=== PATIENT | female | born 1945 | race Caucasian/White ===

== ENCOUNTER → 2018-01-22 12:20 | Outpatient (CLI) | payer MEDICARE, OTHER ==
[2012-03-16 04:00] VITALS: BMI 26.6
== END | disposition home or self-care (01) ==
LOC: D.CT 12:20
DX: J06.9 Acute upper respiratory infection, unspecified (principal)

== ENCOUNTER → 2018-08-09 10:41 | Outpatient (CLI) | payer MEDICARE, OTHER ==
[2012-03-16 04:00] VITALS: BMI 26.6
[2018-08-09 12:28] LABS: BASOPHILS 0.3 % (0-2); HEMATOCRIT 35.9 % (36.0-48.0); HEMOGLOBIN 11.9 g/dL (12-16); IMMATURE GRANULOCYTES 0.3 % (0-5); LYMPHOCYTES 49.4 % (15-50); MCH 30.7 pg (26.0-34.0); MCHC 33.1 g/dL (31.0-37.0); MCV 92.8 fL (80.0-100.0); MEAN PLATELET VOLUME 9.2 fL (7.4-10.4); PLATELET COUNT 197 10x3/uL (130-400); RBC 3.87 10x6/uL (4.00-5.40); RDW 13.1 % (11.5-14.5); WBC 7.2 10x3/uL (4.8-10.8)
[2018-08-10 08:13] LABS: IMMUNOGLOBULIN A 123 mg/dL (64-422)
[2018-08-12 13:12] LABS: IMMUNOGLOBULIN E 26 IU/mL (0-100)
[2018-08-14 15:15] LABS: IGG SUBCLASS 1 637 mg/dL (248-810); IGG SUBCLASS 2 106 mg/dL (130-555); IGG SUBCLASS 3 58 mg/dL (15-102); IGG SUBCLASS 4 20 mg/dL (2-96)
== END | disposition home or self-care (01) ==
LOC: D.RT 10:41
PROVIDERS: Internal Medicine Pulmonary Disease
DX: J45.909 Unspecified asthma, uncomplicated (principal); J42 Unspecified chronic bronchitis

== ENCOUNTER 2018-09-30 12:14 | Inpatient (IN) | payer MEDICARE, OTHER ==
[~2018-09-30] VITALS: Ht 175.3 cm; Wt 95.0 kg
[2018-09-30] MEDS ORDERED: GLUCOPHAGE500 MG PO (12:28)
[2018-09-30] MEDS ORDERED: EDARBI40 MG PO (12:29)
[2018-09-30] MEDS ORDERED: NORVASC10 MG PO (12:29)
[2018-09-30] MEDS ORDERED: LANTUS INSULIN10 ML SC (12:30)
[2018-09-30] MEDS ORDERED: MAG-OX 400 MG400 MG PO (12:30)
[2018-09-30] MEDS ORDERED: OMEPRAZOLE20 M1 PO (12:43)
[2018-09-30 14:34] LABS: APPEARANCE CLEAR (CLEAR); BILIRUBIN NEGATIVE (NEGATIVE); COLOR YELLOW (YELLOW); GLUCOSE NEGATIVE (NEGATIVE); KETONE NEGATIVE (NEGATIVE); NITRITE NEGATIVE (NEGATIVE); PROTEIN NEGATIVE (NEGATIVE); SPECIFIC GRAVITY 1.015 (1.005-1.020); UROBILINOGEN NORMAL (NORMAL)
[2018-09-30 15:28] LABS: MAGNESIUM - SERUM 1.3 mg/dL (1.8-2.4)
[2018-09-30 17:12] LABS: ALBUMIN 3.4 g/dL (3.4-5.0); ANION GAP 14.6 mmol/L (8-16); BILIRUBIN - TOTAL 0.37 mg/dL (0.2-1.3); CARBON DIOXIDE 26.7 mmol/L (21.0-32.0); CREATININE - SERUM 1.1 mg/dL (0.6-1.3); POTASSIUM - SERUM 4.3 mmol/L (3.5-5.1); PROTEIN - SERUM 7.4 g/dL (6.4-8.2)
[2018-09-30 17:25] LABS: CALCIUM 12.1 mg/dL (8.5-10.1)
[2018-09-30 17:43] LABS: BASOPHILS 0.5 % (0-2); EOSINOPHILS 1.2 % (0-7); HEMATOCRIT 37.3 % (36.0-48.0); HEMOGLOBIN 12.4 g/dL (12-16); IMMATURE GRANULOCYTES 0.3 % (0-5); LYMPHOCYTES 47.1 % (15-50); MCH 30.5 pg (26.0-34.0); MCHC 33.2 g/dL (31.0-37.0); MCV 91.6 fL (80.0-100.0); MEAN PLATELET VOLUME 9.1 fL (7.4-10.4); MONOCYTES 4.6 % (2-11); NEUTROPHILS 46.3 % (40-80); RBC 4.07 10x6/uL (4.00-5.40); RDW 14.3 % (11.5-14.5); WBC 10.1 10x3/uL (4.8-10.8)
[2018-09-30 17:47] LABS: PLATELET COUNT 387 10x3/uL (130-400)
[2018-10-01 02:54] VITALS: BP 165/61; BMI 29.0
[2018-10-01 09:55] VITALS: BMI 28.9
[2018-10-01 12:23] VITALS: BP 133/69
[2018-10-01 14:08] LABS: BASOPHILS 0.1 % (0-2); EOSINOPHILS 0 % (0-7); HEMATOCRIT 33.9 % (36.0-48.0); HEMOGLOBIN 11.3 g/dL (12-16); IMMATURE GRANULOCYTES 0.3 % (0-5); LYMPHOCYTES 12.8 % (15-50); MCH 30.1 pg (26.0-34.0); MCHC 33.3 g/dL (31.0-37.0); MCV 90.4 fL (80.0-100.0); MEAN PLATELET VOLUME 9.2 fL (7.4-10.4); MONOCYTES 3.3 % (2-11); NEUTROPHILS 83.5 % (40-80); PLATELET COUNT 353 10x3/uL (130-400); RBC 3.75 10x6/uL (4.00-5.40); RDW 14.3 % (11.5-14.5)
[2018-10-01 14:10] LABS: WBC 15.6 10x3/uL (4.8-10.8)
[2018-10-01 14:22] LABS: ALBUMIN 3.2 g/dL (3.4-5.0); ANION GAP 13.9 mmol/L (8-16); BILIRUBIN - TOTAL 0.27 mg/dL (0.2-1.3); CALCIUM 10.6 mg/dL (8.5-10.1); CARBON DIOXIDE 24.1 mmol/L (21.0-32.0); CREATININE - SERUM 1.3 mg/dL (0.6-1.3); MAGNESIUM - SERUM 1.6 mg/dL (1.8-2.4); PROTEIN - SERUM 7.5 g/dL (6.4-8.2)
[2018-10-01 16:02] VITALS: BP 141/68
[2018-10-01 20:00] VITALS: BP 185/67
[2018-10-02] VITALS: BP 158/55
[2018-10-02 04:00] VITALS: BP 151/56
[2018-10-02 07:20] LABS: BASOPHILS 0 % (0-2); EOSINOPHILS 0 % (0-7); HEMATOCRIT 31.7 % (36.0-48.0); HEMOGLOBIN 10.4 g/dL (12-16); IMMATURE GRANULOCYTES 0.4 % (0-5); LYMPHOCYTES 14.9 % (15-50); MCH 29.6 pg (26.0-34.0); MCHC 32.8 g/dL (31.0-37.0); MCV 90.3 fL (80.0-100.0); MEAN PLATELET VOLUME 9.4 fL (7.4-10.4); MONOCYTES 2.2 % (2-11); NEUTROPHILS 82.5 % (40-80); PLATELET COUNT 339 10x3/uL (130-400); RBC 3.51 10x6/uL (4.00-5.40); RDW 14.8 % (11.5-14.5); WBC 13.1 10x3/uL (4.8-10.8)
[2018-10-02 07:30] VITALS: BP 165/57
[2018-10-02 07:38] LABS: ALBUMIN 2.9 g/dL (3.4-5.0); ANION GAP 18.3 mmol/L (8-16); BILIRUBIN - TOTAL 0.31 mg/dL (0.2-1.3); CALCIUM 9.7 mg/dL (8.5-10.1); CARBON DIOXIDE 19.7 mmol/L (21.0-32.0); CREATININE - SERUM 1.1 mg/dL (0.6-1.3); MAGNESIUM - SERUM 1.4 mg/dL (1.8-2.4); PROTEIN - SERUM 6.7 g/dL (6.4-8.2)
[2018-10-02 12:12] VITALS: BP 151/71
[2018-10-02 15:25] VITALS: BP 143/56
[2018-10-02 16:49] VITALS: Ht 175.3 cm; Wt 95.0 kg
[2018-10-02 20:00] VITALS: BP 116/73; BP 150/59
[2018-10-03] VITALS: BP 146/70
[2018-10-03 04:00] VITALS: BP 147/64
[2018-10-03 07:23] LABS: ALBUMIN 2.9 g/dL (3.4-5.0); ANION GAP 16.4 mmol/L (8-16); BILIRUBIN - TOTAL 0.32 mg/dL (0.2-1.3); CALCIUM 9.2 mg/dL (8.5-10.1); CARBON DIOXIDE 21.9 mmol/L (21.0-32.0); POTASSIUM - SERUM 4.3 mmol/L (3.5-5.1); PROTEIN - SERUM 6.4 g/dL (6.4-8.2)
[2018-10-03 07:53] VITALS: BP 150/63
[2018-10-03 09:37] LABS: BASOPHILS 0 % (0-2); EOSINOPHILS 0 % (0-7); HEMATOCRIT 31.7 % (36.0-48.0); HEMOGLOBIN 10.6 g/dL (12-16); IMMATURE GRANULOCYTES 0.6 % (0-5); LYMPHOCYTES 11.6 % (15-50); MCH 29.8 pg (26.0-34.0); MCHC 33.4 g/dL (31.0-37.0); MEAN PLATELET VOLUME 9.3 fL (7.4-10.4); MONOCYTES 3.4 % (2-11); NEUTROPHILS 84.4 % (40-80); PLATELET COUNT 321 10x3/uL (130-400); RBC 3.56 10x6/uL (4.00-5.40); RDW 14.7 % (11.5-14.5)
[2018-10-03 09:49] LABS: WBC 9.7 10x3/uL (4.8-10.8)
[2018-10-03 11:32] VITALS: BP 177/62
--- NOTE | 2018-10-03 13:28 | MORECARE ---
CASE MANAGEMENT DISCHARGE SUMMARY PATIENT: TIMMY LINDSEY UNIT: [id number] ADM DATE: 09/30/18 AGE: 73 : 45 SEX: F ROOM/BED: D.1208 AUTHOR: KRISTIAN IGNACIO PHYSICIAN: REFERRING PHYSICIAN: NILTON HOLLAND MD DATE OF SERVICE: 10/03/18 Discharge Plan Patient Name: TIMMY LINDSEY Facility: [facility]:[place] : 1945 Planned Disposition: Home Anticipated Discharge Date: 10/03/18 Discharge Date: Expected LOS: 3 Initial Reviewer: [email or web address] Initial Review Date: 09/30/2018 Generated: 10/03/18 2:28 pm Patient Name: TIMMY LINDSEY Page [id number] at 1328 All edits/amendments must be made on the electronic document DICTATION DATE: 10/03/18 1327 DIRECTOR OF CONSULTING SERVICES: MOLLY 10/03/18 1327 RPT#: [id number] DC DATE: STATUS: ADM IN [facility] [address] [place] [address] END OF REPORT
--- NOTE | 2018-10-03 13:37 | MORECARE ---
CASE MANAGEMENT DISCHARGE SUMMARY PATIENT: TIMMY KNIGHT UNIT: [id number] ADM DATE: 09/30/18 AGE: 73 : 45 SEX: F ROOM/BED: D.1208 AUTHOR: KRISTIAN IGNACIO PHYSICIAN: REFERRING PHYSICIAN: NILTON MORALES MD DATE OF SERVICE: 10/03/18 Discharge Plan Patient Name: TIMMY KNIGHT Facility: [facility]:[place] : 1945 Planned Disposition: Home Anticipated Discharge Date: 10/03/18 Discharge Date: Expected LOS: 3 Initial Reviewer: [email or web address] Initial Review Date: 09/30/2018 Generated: 10/03/18 2:37 pm DCPIA - Discharge Planning Initial Assessment Updated by [email or web address]: Enedelia Patel on 10/03/18 1:29 pm * Is the patient Alert and Oriented? Yes * How many steps to enter\exit or inside your home? 5 w/ramp * PCP Dr Morales * Pharmacy [facility] * Preadmission Environment Home with Family * ADLs Independent * Equipment Bedside Commode Grab Bars Nebulizer Power Chair or Electric Scooter Rolling Walker Shower Chair Wheelchair * List name and contact numbers for known caregivers / representatives who currently or will assist patient after discharge: Nile Knight, spouse, * Verbal permission to speak to the caregivers and representatives has been obtained from the patient. Yes * Community resources currently utilized None * Additional services required to return to the preadmission environment? No * Can the patient safely return to the preadmission environment? Yes * Has this patient been hospitalized within the prior 30 days at any hospital? No Last DP export: 10/03/18 12:28 p Patient Name: TIMMY KNIGHT Page [id number] at 1337 All edits/amendments must be made on the electronic document DICTATION DATE: 10/03/181336 CRIMINALIST: MOLLY 10/03/187 RPT#: [id number] DC DATE: STATUS: ADM IN [facility] [address] [place] [address] END OF REPORT
--- NOTE | 2018-10-03 13:58 | MORECARE ---
CASE MANAGEMENT DISCHARGE SUMMARY PATIENT: TIMMY KNIGHT UNIT: [id number] ADM DATE: 09/30/18 AGE: 73 : 45 SEX: F ROOM/BED: D.1208 AUTHOR: MATEUS,DOC PHYSICIAN: REFERRING PHYSICIAN: NILTON MORALES MD DATE OF SERVICE: 10/03/18 Discharge Plan Patient Name: TIMMY KNIGHT Facility: [facility]:[place] : 1945 Planned Disposition: Home Anticipated Discharge Date: 10/03/18 Discharge Date: Expected LOS: 3 Initial Reviewer: [email or web address] Initial Review Date: 09/30/2018 Generated: 10/03/18 2:58 pm Comments DCP- Discharge Planning Updated by [email or web address]: Enedelia Patel on 10/03/18 12:[address] Patient Name: TIMMY KNIGHT Admission Status: ER Accout number: [id number] Admission Date: 09-30-2018 : 1945 Admission Diagnosis: Attending: NILTON MORALES Current LOS: 3 Anticipated DC Date: 10-03-2018 Planned Disposition: Home Primary Insurance: MEDICARE A & B Discharge Planning Comments: After obtaining verbal consent, CM met with patient and spouse about discharge planning. Patient and spouse state discharge plan is to return home. Both state home environment is safe. Both deny any concerns or needs regarding discharge to home. Deny need for home health. Spouse will drive patient home upon discharge. CM will continue to follow and assist as needed with discharge planning / needs Greenskeeper: Enedelia Patel DCPIA - Discharge Planning Initial Assessment Updated by [email or web address]: Enedelia Patel on 10/03/18 1:29 pm * Is the patient Alert and Oriented? Yes * How many steps to enter\exit or inside your home? 5 w/ramp * PCP Dr Morales * Pharmacy [facility] [place] * Preadmission Environment Home with Family * ADLs Independent * Equipment Bedside Commode Grab Bars Nebulizer Power Chair or Electric Scooter Rolling Walker Shower Chair Wheelchair * List name and contact numbers for known caregivers / representatives who currently or will assist patient after discharge: Nile Knight, spouse, * Verbal permission to speak to the caregivers and representatives has been obtained from the patient. Yes * Community resources currently utilized None * Additional services required to return to the preadmission environment? No * Can the patient safely return to the preadmission environment? Yes * Has this patient been hospitalized within the prior 30 days at any hospital? No Coverage Notice Reviewer: [email or web address] Rox Patel Notice Issued Date-Time: 10/03/2018 13:51 Notice Type: IM Discharge Notice Notice Delivered To: Patient Relationship to Patient: Self Coil Wrapper Name: Delivery Method: HAND - Hand Delivered Laurie Days: Prior Verbal Notification: Recipient Understood Notice: Yes Recipient Signature: Yes Med Rec Note Co-signed by Attending: Coverage Notice Comment: Last DP export: 10/03/18 12:37 p Patient Name: TIMMY KNIGHT Page 23198 at 1358 All edits/amendments must be made on the electronic document DICTATION DATE: 10/03/18 135 INTERMISSION COORDINATOR: MOLLY 10/03/18 1357 RPT#: [id number] DC DATE: STATUS: ADM IN [facility] [address] [place] [address] END OF REPORT
== END 2018-10-03 15:57 | disposition home or self-care (01) | DRG 640 ==
LOC: D.ER 12:14 → D.EDHOLD 17:42 → OBSVTIME 17:43 → D.M3 17:45
PROVIDERS: Emergency Medicine; Family Medicine Adult Medicine; ADMIT Family Medicine
DX: E83.52 Hypercalcemia (principal); G93.41 Metabolic encephalopathy; R53.1 Weakness; W19.XXXA Unspecified fall, initial encounter; E86.0 Dehydration; K21.9 Gastro-esophageal reflux disease without esophagitis; E11.40 Type 2 diabetes mellitus with diabetic neuropathy, unspecified; M48.061 Spinal stenosis, lumbar region without neurogenic claudication

== ENCOUNTER 2019-02-26 18:59 | Emergency (ER) | payer MEDICARE, OTHER ==
[~2019-02-26] VITALS: Ht 175.3 cm; Wt 90.9 kg
[~2019-02-26 18:59] MED LIST: EDARBI40 MG PO; GLUCOPHAGE500 MG PO; LANTUS INSULIN10 ML SC; MAG-OX 400 MG400 MG PO; NORVASC10 MG PO; OMEPRAZOLE20 M1 PO
[2019-02-26 19:01] VITALS: Ht 175.3 cm; Wt 90.9 kg
[2019-02-26 20:30] LABS: BASOPHILS 0.2 % (0-2); EOSINOPHILS 0.2 % (0-7); HEMATOCRIT 31.4 % (36.0-48.0); HEMOGLOBIN 10.6 g/dL (12-16); IMMATURE GRANULOCYTES 0.4 % (0-5); LYMPHOCYTES 11.6 % (15-50); MCHC 33.8 g/dL (31.0-37.0); MCV 85.8 fL (80.0-100.0); MEAN PLATELET VOLUME 9.6 fL (7.4-10.4); MONOCYTES 8.4 % (2-11); NEUTROPHILS 79.2 % (40-80); RBC 3.66 10x6/uL (4.00-5.40); WBC 9.9 10x3/uL (4.8-10.8)
[2019-02-26 20:40] LABS: APTT 24.5 SECONDS (22.8-39.4); INR 1.18 (0.85-1.17); PROTIME 14.5 SECONDS (11.6-15.0)
[2019-02-26 20:44] LABS: PLATELET COUNT 127 10x3/uL (130-400)
[2019-02-26 20:49] LABS: ALBUMIN 3.1 g/dL (3.4-5.0); ALKALINE PHOSPHATASE 68 U/L (46-116); ALT (SGPT) 55 U/L (10-68); BILIRUBIN - TOTAL 0.71 mg/dL (0.2-1.3); CALC OSMOLALITY 277 mosm/kg (275-300); CALCIUM 8.6 mg/dL (8.5-10.1); CARBON DIOXIDE 22.6 mmol/L (21.0-32.0); CHLORIDE - SERUM 98 mmol/L (98-107); CREATININE - SERUM 1.1 mg/dL (0.6-1.3); GLUCOSE 257 mg/dL (74-106); POTASSIUM - SERUM 4.5 mmol/L (3.5-5.1); PROTEIN - SERUM 6.6 g/dL (6.4-8.2); SODIUM 131 mmol/L (136-145); UREA NITROGEN 29 mg/dL (7-18); eGFR NON AFRICAN AMERICAN 51 mL/min (90-120)
[2019-02-26 21:00] LABS: CKMB 0.2 U/L (0.0-3.6); TROPONIN-I < 0.017 ng/mL (0.000-0.060)
[2019-02-26 21:17] LABS: AMYLASE - SERUM 22 U/L (25-115); CREATINE KINASE 66 UL (21-215); LIPASE 90 U/L (73-393)
[2019-02-26 21:47] LABS: APPEARANCE HAZY (CLEAR); BILIRUBIN NEGATIVE (NEGATIVE); COLOR YELLOW (YELLOW); GLUCOSE NEGATIVE (NEGATIVE); KETONE NEGATIVE (NEGATIVE); NITRITE NEGATIVE (NEGATIVE); PROTEIN 1+ mg/dL (NEGATIVE); UROBILINOGEN NORMAL (NORMAL)
[2019-02-26 21:48] LABS: BACTERIA MANY /hpf (NONE SEEN); EPITHELIAL CELLS 0-5 /hpf (0-5); RED CELLS - URINE 0-5 /hpf (0-5)
[2019-02-26] MEDS ORDERED: MACROBID100 MG PO (21:52)
[2019-02-26 22:15] VITALS: BP 132/54
== END 2019-02-26 22:15 | disposition home or self-care (01) ==
LOC: D.ER 18:59
PROVIDERS: Emergency Medicine
DX: N39.0 Urinary tract infection, site not specified (principal); R50.9 Fever, unspecified; D64.9 Anemia, unspecified; R73.9 Hyperglycemia, unspecified

== ENCOUNTER → 2019-04-28 16:54 | Outpatient (CLI) | payer MEDICARE, OTHER ==
[2019-02-26 19:01] VITALS: BMI 29.6
[~2019-04-28 16:54] MED LIST changes: +MACROBID100 MG PO
== END | disposition home or self-care (01) ==
LOC: D.LABREF 16:54
PROVIDERS: ATTEND Urology
DX: N39.0 Urinary tract infection, site not specified (principal)

== ENCOUNTER → 2019-05-12 17:49 | Outpatient (CLI) | payer MEDICARE, OTHER ==
[2019-02-26 19:01] VITALS: BMI 29.6
== END | disposition home or self-care (01) ==
LOC: D.LABREF 17:49
PROVIDERS: ATTEND Urology
DX: N39.0 Urinary tract infection, site not specified (principal)

== ENCOUNTER → 2020-12-09 08:59 | Outpatient (CLI) | payer MEDICARE, OTHER ==
[2019-02-26 19:01] VITALS: BMI 29.6
== END | disposition home or self-care (01) ==
LOC: D.HCCARDIO 08:59
PROVIDERS: ATTEND Internal Medicine Cardiovascular Disease
DX: I10 Essential (primary) hypertension (principal)

== ENCOUNTER 2020-12-20 11:27 | Day surgery (SDC) | payer MEDICARE, OTHER ==
[~2020-12-20] VITALS: Ht 175.3 cm; Wt 100.0 kg
--- NOTE | ~2020-12-20 | HEMODYNAMI ---
PATIENT:TIMMY LINDSEY MEDICAL RECORD: [id number] : 45 LOCATION:[facility] ADMISSION DATE: 12/20/20 Generatedon:114:02 Patient name: TIMMY LINDSEY Patient #: [id number] SSN: [id number] : 1945 Date of study: 12/20/2020 Page: Of Hemodynamic Procedure Report Patient Data Patient Demographics Procedure consent was obtained First Name: TIMMY Gender: Female Last Name: ROSALIA : 1945 Patient #: [id number] Age: 75 year(s) Race: Unknown SSN: [id number] Additional ID: [id number] Contact details Address: [address] [place] [address] State: [place] City: [facility] Zip code: [address] Past Medical History Performed procedures and imaging results Date Procedure Procedure Results Comments Stress testing Positive->Intermediate with SPECT MPI risk Allergies Allergen Reaction Date Comments Reported Other allergy 12/20/2020 CODEINE, MORPHINE Admission Admission Data Admission Date: 12/20/2020 Admission Time: 11:27 Arrival Date: 12/20/2020 Arrival Time: 0:00 Height (in.): 69 BSA: 2.15 (m2) Height (cm.): 175.26 BMI: 32.49 (kg/m2) Weight (lbs.): 220 Weight (kg.): 99.79 Lab Results Lab Result Date: 12/20/2020 Lab Result Time: 0:00 Biochemistry Name Units Result Min Max BUN mg/dl 36 --(----)-* 7 18 Creatinine mg/dl 1.3 --(---*)-- 0.6 1.3 eGFR ml/min 42 *-(----)-- 90 120 NONAFRICAN CBC Name Units Result Min Max Hematocrit % 37.1 *-(----)-- 42 54 Hemoglobin g/dl 12.3 *-(----)-- 13.5 17.5 Procedure Procedure Types Cath Procedure Diagnostic Procedure [facility] w/Coronaries FFR/IVUS FFR Initial FFR Additional Sedation Charges Moderate Sedation 25-39 minutes PCI Procedure Hemochron ACT Test Procedure Description Procedure Date Procedure Date: 12/20/2020 Procedure Start Time: 13:26 Procedure End Time: 13:58 Procedure Staff Name Function Sebastian Sorensen MD Performing Physician Nimco Stern RT Monitor Dali Garcia RT Scrub Mallika Atkins, RN Nurse Marcus Salazar RN Nurse Procedure Data Cath Procedure Fluoroscopy Diagnostic fluoroscopy Total fluoroscopy Time: 7.5 time: 7.5 min min Diagnostic fluoroscopy Total fluoroscopy dose: dose: 1118 mGy 1118 mGy Contrast Material Contrast Material Type Amount (ml) Isovue 300 97 Entry Location Entry Primary Successful Side Size Upsize Upsize Entry Closure Succes sful Closure Location (Fr) 1 (Fr) 2 (Fr) Remarks Device Remarks Femoral Right 5 Fr Exoseal artery Estimated blood loss: 5 ml Diagnostic catheters Device Type Used For End Catheter Placement MULTIPACK JL 4.0 5Fr Procedure catheter MULTIPACK 3DRC 5Fr Procedure catheter MULTIPACK Pigtail 5 Fr Procedure catheter MULTIPACK 3DRC 5Fr Procedure catheter Procedure Complications No complications Procedure Medications Medication Administration Route Dosage Oxygen etCO2 Nasal cannula 2 l/min Heparin Flush Bag added to field 2 bags (1000units/500ml NS) Lidocaine 2% added to field 20 0.9% NaCl I.V. 100 ml/hr Fentanyl I.V. 50 mcg Versed I.V. 1 mg Fentanyl I.V. 50 mcg Versed I.V. 1 mg Heparin Bolus I.V. 5000 units Zofran I.V. 4 mg Hemodynamics Rest BSA: 2.15 (m2) O2 Consumption: Estimated: 186.96 (ml/min) O2 Consumption indexed : Estimated:86.96 (ml/min/m) Heart Rate: 59 (bpm) Pressure Samples Time Site Value (mmHg) Purpose Heart Use Rate(bpm) 13:35 LV 113/-8,6 Snapshot 82 Gradients Valve Time Site Site Mean SEP/DFP Peak To Heart Use 1 2 (mmHg) (sec/min) Peak Rate (mmHg) (bpm) Aortic 13:36 LV AO 83 Snapshots Pre Cath Intra NCS Post Cath Vital Signs Time Heart Resp SPO2 etCO2 NIBP (mmHg) Rhythm Pain Sedation Rate (ipm) (%) (mmHg) Status Level (bpm) 13:17:57 56 13 100 33.1 166/63(110) NSR 0 (11) 10(A) , No pain 13:22:19 62 18 95 27.1 131/59(107) NSR 0 (11) 10(A) , No pain 13:26:25 77 22 94 0 148/71(91) NSR 0 (11) 10(A) , No pain 13:30:41 83 28 92 0 137/62(95) NSR 0 (11) 9(A) , No pain 13:34:55 84 12 95 28.6 134/56(88) NSR 0 (11) 9(A) , No pain 13:39:07 83 16 97 40.7 135/59(88) NSR 0 (11) 9(A) , No pain 13:43:19 81 18 98 33.1 143/60(94) NSR 0 (11) 9(A) , No pain 13:47:30 80 14 99 30.8 140/66(100) NSR 0 (11) 9(A) , No pain 13:51:44 84 17 100 26.3 147/59(96) NSR 0 (11) 10(A) , No pain 13:55:54 76 15 100 30.8 160/78(106) NSR 0 (11) 9(A) , No pain Medications Time Medication Route Dose Verified Delivered Reason Notes Effectiveness by by 13:23:05 Zofran I.V. 4 mg Mallika Mallika Per physician Wilbert Atkins, MEGHAN RN 13:24:28 Oxygen etCO2 2 Mallika Mallika for low 02 sats Nasal l/min Wilbert Atkins, cannula RN RN 13:24:36 Heparin Flush added 2 Mallika Mallika used for Bag to bags Wilbert Atkins procedure (1000units/500ml field RN RN NS) 13:24:48 Lidocaine 2% added 20ml Mallika Sebastian for local to vial Edu Atkins MD anesthetic RN 13:25:01 0.9% NaCl I.V. 100 Mallika Mallika Per physician ml/hr Wilbert Atkins, RN RN 13:25:16 Fentanyl I.V. 50 Mallika Mallika for sedation mcg Wilbert Atkins, RN RN 13:25:22 Versed I.V. 1 mg Mallika Mallika for sedation Wilbert Atkins RN RN 13:29:21 Fentanyl I.V. 50 Mallika Mallika for sedation mcg Wilbert Atkins RN RN 13:29:25 Versed I.V. 1 mg Mallika Mallika for sedation Wilbert Atkins, MEGHAN CHRISTIANSON 13:37:50 Heparin Bolus I.V. 5000 Mallika Mallika for verif ied units Wilbert Atkins, anticoagulation with dr. MEGHAN sorensen Procedure Log Time Note 12:23:53 Informed consent obtained and on chart 12:27:12 Patient Weight : 220 lbs 12:27:15 Patient Height : 69 inches 12:28:27 Arrival Date: 12/20/2020 12:00:00 AM 12:40:58 Patient allergic to Other allergyCODEINE, MORPHINE 12:42:16 Procedure Status Elective Heart Cath (OP). 12:42:27 Time tracking: Regular hours (M-F 7:00 - 5:00) 12:42:31 Plan of Care:Hemodynamics will remain stable., Cardiac rhythm will remain stable., Comfort level will be maintained., Respiratory function will remain adequate., Patient/ family verbilizes understanding of procedure., Procedure tolerated without complication., Recovers from procedure without complications.. 12:42:38 H&P Date Dictated: 11/25/2020 Within 30 days and on chart., H&P Addendum completed by physician on day of procedure. (MUST COMPLETE FOR ALL OUTPATIENTS). 12:42:48 Stress Test: yes; abnormal ANTERIOR 12:58:57 Dali BOYER(R) sent for patient. Start room use. 13:01:18 Lab Result : BUN 36 mg/dl 13::18 Lab Result : Creatinine 1.3 mg/dl 13::19 Lab Result : eGFR NONAFRICAN 42 ml/min 13::19 Lab Result : Hemoglobin 12.3 g/dl 13::19 Lab Result : Hematocrit 37.1 % 13:05:30 Patient received from Pre/Post Procedure Room to CCL 2 Alert and oriented. Tansferred to table in Supine position. 13:05:31 Warm blankets applied, and deyvi hugger turned on for patient comfort. 13:05:31 Correct patient and procedure confirmed by team. 13:05:35 ECG and BP/O2 sat monitors applied to patient. 13:16:43 Vital chart was started 13:16:48 Rhythm: sinus rhythm 13:16:52 Full Disclosure recording started 13:16:53 Pre-procedure instructions explained to patient. 13:16:53 Pre-op teaching completed and patient verbalized understanding. 13:16:55 Family in patients room. 13:16:56 Patient NPO since Midnight. 13:16:59 Is the patient allergic to Iodine/contrast media? No. 13:17:00 Is patient on blood thinner?No 13:17:01 Patient diabetic? Yes. 13:17:02 If diabetic: On Metformin? No 13:17:05 Patient not . Patient is over age 55. 13:17:09 Previous problem with sedation/anesthesia? Yes NAUSEA 13:17:11 Snore? No 13:17:12 Sleep apnea? No 13:17:13 Deviated septum? No 13:17:14 Opens mouth fully? Yes 13:17:18 Sticks out tongue? Yes 13:17:22 Airway obstruction? Yes ASTHMA 13:17:25 Dentures? No ? 13:17:27 Modified Lobito's test Ulnar > 7 seconds. 13:17:30 Pre procedure: right dorsailis pedis pulse 1+ Palpable, but thready & weak; easily obliterated 13:17:43 Patient pain scale 0/10 ?. 13:18:00 IV patent on arrival in left forearm with 0.9% NaCl at [facility]. 13:18:03 Lab results completed and on chart. 13:19:54 Right groin area was prepped with chlora-prep and draped in sterile fashion 13:19:54 Alarms reviewed by R. N. 13:19:55 Sharps counted by scrub and verified by R.N. 13:23:05 Zofran 4 mg I.V. was administered by Mallika Atkins RN; Per physician; Verbal order read back and verified. 13:23:13 --------ALL STOP TIME OUT------ 13:23:15 Final Timeout: patient, procedure, and site verified with staff and physician. All members of the team are in agreement. 13:23:16 Right groin site verified by team. 13:24:03 Fire Safety Assessment: A--An alcohol-based skin anteseptic being used preoperatively., C--Open oxygen or nitrous oxide is being used., D--An ESU, laser, or fiber-optic light is being used. 13:24:05 Physical assessment completed. ASA score P 2 - A patient with mild systemic disease as per Sebastian Sorensen MD. 13:24:08 3b) 30-44 Moderately reduced kidney function. 13:24:11 Maximum allowable contrast dose (3.7 X eGFR X 0.75)117 ml. 13:24:14 Sedation plan: IV Moderate Sedation Medication:Versed, Fentanyl 13:24:28 Oxygen 2 l/min etCO2 Nasal cannula was administered by Mallika Atkins RN; for low 02 sats; Verbal order read back and verified. 13:24:36 Heparin Flush Bag (1000units/500ml NS) 2 bags added to field was administered by Mallika Atkins RN; used for procedure; Verbal order read back and verified. 13:24:48 Lidocaine 2% 20ml vial added to field was administered by Sebastian Sorensen MD; for local anesthetic; Verbal order read back and verified. 13:25:01 0.9% NaCl 100 ml/hr I.V. was administered by Mallika Atkins RN; Per physician; Verbal order read back and verified. 13:25:16 Fentanyl 50 mcg I.V. was administered by Mallika Atkins RN; for sedation; Verbal order read back and verified. 13:25:22 Versed 1 mg I.V. was administered by Mallika Atkins RN; for sedation; Verbal order read back and verified. 13:26:19 Procedure started. 13:26:36 Local anesthetic to right femoral artery with Lidocaine 2% by Sebastian Sorensen MD.INITIAL ACCESS ONLY 13:26:41 Baseline sample Acquired. 13:28:47 Use device set Femoral Dx 13:28:48 ACIST Syringe (25000) opened to sterile field. 13:28:51 Bag Decanter () opened to sterile field. 13:28:52 ACIST Hand Control (25562) opened to sterile field. 13:28:52 ACIST Manifold (15412) opened to sterile field. 13:28:53 Tegaderm 4 x 4 (1626W) opened to sterile field. 13:28:54 Medline Cath Pack ([id number]) opened to sterile field. 13:28:54 DIAGNOSTIC Multipack 5Fr catheter set (YX3909) opened to sterile field. 13:28:55 SHEATH 5FR [place] (XFG567) opened to sterile field. 13:28:56 EMERALD Guide Wire (502-542) opened to sterile field. 13:29:02 A 5 Fr sheath was inserted into the Right Femoral artery 13:29:10 A MULTIPACK JL 4.0 5Fr catheter was advanced over the wire and used for Procedure. 13:29:21 Fentanyl 50 mcg I.V. was administered by Mallika Atkins RN; for sedation; Verbal order read back and verified. 13:29:25 Versed 1 mg I.V. was administered by Mallika Atkins RN; for sedation; Verbal order read back and verified. 13:31:03 LCA angiography performed. 13:31:42 Catheter exchanged over wire. 13:31:51 A MULTIPACK 3DRC 5Fr catheter was advanced over the wire and used for Procedure. 13:33:44 RCA angiography performed. 13:33:45 Catheter exchanged over wire. 13:34:03 A MULTIPACK Pigtail 5 Fr catheter was advanced over the wire and used for Procedure. 13:35:00 LV gram done using [place]ER[place]OD 13:35:07 Injector settings: Ml/sec: 10, Volume: 20, 13:35:29 LV hemodynamics recorded. 13:36:10 EF : 60 % 13:36:21 Catheter exchanged over wire. 13:36:29 PROCEEDING TO IFR 13:37:30 [place] OmniWire (04501) opened to sterile field. 13:37:31 TUBING High Pressure Extension Tubing (Edu) ([id number]) opened to sterile field. 13:37:32 INFLATOR Merit BasixCompak (XI8291) opened to sterile field. 13:37:38 A MULTIPACK 3DRC 5Fr catheter was advanced over the wire and used for Procedure. 13:37:47 OMNI Pressure wire advanced. 13:37:50 Heparin Bolus 5000 units I.V. was administered by Mallika Atkins RN; for anticoagulation; verified with dr. sorensen Verbal order read back and verified. 13:39:58 Zero performed for pressure channel P1 13:41:56 Wire advanced across lesion. 13:42:25 RCA lesion measured at .97 with IFR 13:42:54 Wire removed. 13:42:55 Guide catheter removed. 13:43:31 Zero performed for pressure channel P1 13:43:34 Zero performed for pressure channel P1 13:44:37 GUIDE 5FR EBU 3.5 catheter ([id number]) opened to sterile field. 13:44:50 5 Fr EBU 3.5 guide catheter was inserted over the wire 13:45:42 OMNI Pressure wire advanced. 13:51:18 Wire advanced across lesion. 13:52:13 LAD lesion measured at .95 with IFR 13:52:37 Wire removed. 13:52:38 Guide catheter removed. 13:52:48 EXOSEAL 5Fr (EX500) opened to sterile field. 13:54:05 Sheath removed intact; hemostasis achieved with Exoseal to the Right Femoral artery. 13:54:29 Procedure ended.(Physican Out) 13:54:42 Fluoroscopy time 07.50 minutes. 13:54:54 Flurop Dose total: 1118 13:54:54 Fluoroscopy dose: 1118 mGy 13:55:01 Dose Area Product 08650 mGy/cm. 13:55:06 Contrast amount:Isovue 300 97ml. 13:55:07 Maximum allowable dose exceeded? No. 13:55:08 Sharps counted by scrub and verified by R.N. 13:55:28 Post-op/insertion site Right Femoral artery dressed using a 4 x 4 and Tegaderm. 13:55:31 Post-procedure physical assessment completed. ASA score P 2 - A patient with mild systemic disease as per Sebastian Sorensen MD. 13:55:34 Post procedure rhythm: sinus rhythm 13:55:38 Estimated blood loss: 5 ml 13:55:40 Post procedure instruction explained to patient.Patient verbalizes understanding. 13:55:40 Patient needs reinforcement of post procedure teaching. 13:56:06 Procedure type changed to Cath procedure, Diagnostic procedure, LHC, [facility] w/Coronaries, FFR/IVUS, FFR Initial, FFR Additional, Sedation Charges, Moderate Sedation 25-39 minutes, PCI procedure, Hemochron ACT Test 13:56:31 Procedure and supply charges have been captured, reviewed, submitted and are correct. 13:57:09 Procedure Complication : No complications 13:57:11 Vital chart was stopped 13:57:13 [facility] Findings: mild to moderate CAD (<70%) 13:57:14 Operative report dictated upon procedure completion. 13:57:14 See physician's report for complete and final results. 13:57:50 ACT drawn and resulted at 252 seconds. (normal therapeutic range 180-240 seconds). 13:57:57 Report given to Pre/Post Procedure Room. 13:57:59 Patient transfered to Pre/Post Procedure Room with Bed. 13:58:02 Procedure ended. 13:58:02 Full Disclosure recording stopped 14:00:25 End room use (Document Last) 14:01:44 Procedure ended.(Physican Out) Device Usage Item Name Manufacture Quantity Catalog Hospital Part Current Minimal L ot# / Number Charge Number Stock Stock Serial# Code ACIST Acist 1 67470 100597 003447 [id number] 20 Syringe Medical (32397) Systems Inc Bag Microtek 1 2001S 582452 38427 884736 5 Decanter Medical Inc. () ACIST Hand Acist 1 65037 262773 931455 509371 5 Control Medical (60781) Systems Inc ACIST Acist 1 46032 926992 995976 810223 5 Manifold Medical (91657) Systems Inc Tegaderm 4 3M 1 1626W 179346 831150 475721 5 x 4 (1626W) Medline Medline 1 [id number] 376019 58101 364623 5 Cath Pack ([id number]) DIAGNOSTIC Cardinal 1 XU8793 750118 79132 997198 30 Multipack Health 5Fr catheter set (CD2956) SHEATH 5FR Terumo 1 OGN295 651689 483447 301330 5 [place] (FGI944) EMERALD Cardinal 1 502-455 466710 662502 141268 5 Guide Wire Health (502-455) MULTIPACK Cardinal 1 759299 5 JL 4.0 5Fr Health catheter MULTIPACK Cardinal 1 042174 5 3DRC 5Fr Health catheter MULTIPACK Cardinal 1 022214 5 Pigtail 5 Health Fr catheter Augusta Augusta 1 [id number] 614152 97132 9944 5 OmniWire (31007) TUBING High Merit 1 [id number] 179972 55743 807978 10 Pressure Medical Extension Tubing (Sorensen) (DN6574T) INFLATOR Merit 1 RT2704 983476 294257 217937 15 [facility] Medical BasixCompak (QX8728) GUIDE 5FR Medtronic 1 [id number] 562108 780242 105674 1 EBU 3.5 catheter (MD8DSS09) EXOSEAL 5Fr Cardinal 1 EX500 012230 659785 238943 10 (EX500) Health Signature Audit [place] Stage Time Signature Unsigned Intra-Procedure 12/20/2020 Nimco Stern 2:00:36 PM RT(R) Intra-Procedure 12/20/2020 Marcus Salazar RN 2:01:44 PM Intra-Procedure 12/20/2020 Sebastian Sorensen MD 2:02:01 PM Signatures Performing Physician : Signature : Sebastian Sorensen MD Date : Time : Monitor : Nimco Stern Signature : RT Date : Time : Nurse : Mallika Atkins, Signature : RN Date : Time : Nurse : Marcus Salazar RN Signature : Date : Time : [facility] [address] [place] [address]
[~2020-12-20 11:27] MED LIST changes: -LANTUS INSULIN10 ML SC; +LANTUS SOL100 UNIT/2 SC
[2020-12-20] MEDS ORDERED: LOPID600 MG PO (11:52)
[2020-12-20] MEDS ORDERED: HUMALOG 30100 UNITS/ SC (11:53)
[2020-12-20] MEDS ORDERED: ATIVAN1 MG PO (11:54)
[2020-12-20] MEDS ORDERED: TRIAMTERENE-HC1 EAC6 PO (11:57)
[2020-12-20] MEDS ORDERED: MERIBIN5 MG PO (11:58)
[2020-12-20] MEDS ORDERED: CO Q-10100 MG PO (11:58)
[2020-12-20] MEDS ORDERED: ZANAFLEX4 MG PO (11:58)
[2020-12-20] MEDS ORDERED: GLUCOSAMINE HC500 MG PO (11:59)
[2020-12-20] MEDS ORDERED: FISH OIL 1,0001 CA1 PO (11:59)
[2020-12-20] MEDS ORDERED: MULTI-DAY VITAM1 TAB PO (11:59)
[2020-12-20] MEDS ORDERED: PROBIOTIC1 EAC1 PO (12:06)
[2020-12-20] MEDS ORDERED: SUPER B COMPLE1 EAC1 PO (12:06)
[2020-12-20] MEDS ORDERED: VITAMIN C500 M1 PO (12:07)
[2020-12-20] MEDS ORDERED: VITAMIN D325 MC1 PO (12:07)
[2020-12-20 12:29] VITALS: BP 142/100; Ht 175.3 cm; Wt 100.0 kg
[2020-12-20 12:36] LABS: BASOPHILS 0.5 % (0-2); EOSINOPHILS 2.3 % (0-7); HEMATOCRIT 37.1 % (36.0-48.0); HEMOGLOBIN 12.3 g/dL (12-16); IMMATURE GRANULOCYTES 0.5 % (0-5); LYMPHOCYTE ABS# 2.93 10x3/uL (1.18-3.74); LYMPHOCYTES 45.4 % (15-50); MCH 30.3 pg (26.0-34.0); MCHC 33.2 g/dL (31.0-37.0); MCV 91.4 fL (80.0-100.0); MEAN PLATELET VOLUME 9.5 fL (7.4-10.4); NEUTROPHIL ABS# 2.93 10x3/uL (1.56-6.13); NEUTROPHILS 45.3 % (40-80); RBC 4.06 10x6/uL (4.00-5.40); RDW 13.8 % (11.5-14.5); WBC 6.5 10x3/uL (4.8-10.8)
[2020-12-20 12:40] LABS: ANION GAP 16.6 mmol/L (8-16); CALCIUM 10.4 mg/dL (8.5-10.1); CARBON DIOXIDE 21.3 mmol/L (21.0-32.0); CHOL - HDL RATIO 4.2 ratio (2.3-4.1); CREATININE - SERUM 1.3 mg/dL (0.6-1.3); LDL-HDL RATIO 2.8 ratio (1.5-3.5); PLATELET COUNT 257 10x3/uL (130-400); POTASSIUM - SERUM 4.9 mmol/L (3.5-5.1)
--- NOTE | 2020-12-20 14:15 | NUR ---
PT ARRIVES TO ROOM 5 VIA STRETCHER FROM [facility]AN ROOM SUPERVISOR S/P HEART CATH. SEE LASER TECHNICIAN. PT DENIES PAIN OR NEEDS, CALL LIGHT WITHIN REACH. PT EDUCATED ON TIME FRAME AND KEEPING HEAD ON PILLOW AND RIGHT LEG STRAIGHT. SPOUSE AT BEDSIDE
--- NOTE | 2020-12-20 14:30 | NUR ---
EYES CLOSED AROUSES EASILY, VSS, SB NO ECTOPY ON MONITOR, RIGHT GROIN WITH OOZING OR BLEEDING , NO PALPABLE HEMATOMA, EXTREMITY WARMS AND PEDAL PULSE PALPABLE, MOVES DIGITS, IV INFUSING PER ORDERS , DENIES PAIN OR NEEDS, SPOUSE AT BEDSIDE, CALL LIGHT WITHIN REACH
--- NOTE | 2020-12-20 14:45 | NUR ---
RIGHT GROIN SOFT WITHOUT OOZING OR BLEEDING , NO PALPALABLE HEMATOMA, EXTREMITY WARM AND PEDAL PULSE PALPABLE, DENIES PAIN OR NEEDS, VSS, SB, IV INFUSING PER ORDERS , CALL LIGHT WITHIN REACH
--- NOTE | 2020-12-20 15:00 | NUR ---
PLACED ON BEDPAN PER PT REQUEST, VSS, SR/SB NO ECTOPY, RIGHT GROIN SOFT WITHOUT OOZING OR BLEEDING NOTED, OPSITE C/D/I, PEDAL PULSE PALPABLE, DENIES PAIN OR NEEDS , IV INFUSING PER ORDERS, CALL LIGHT WITHIN REACH
--- NOTE | 2020-12-20 15:30 | NUR ---
PT VOIDS 100CC CLEAR YELLOW URINE, RIGHT GROIN SOFT WITH OUT PALPALBE HEMATOMA, NO OOZING OR BLEEDING NOTED , PEDAL PULSE PALPABLE, DENIES PAIN OR NEEDS, IV INFUSING PER ORDERS, CALL LIGHT WITHIN REACH
--- NOTE | 2020-12-20 16:00 | NUR ---
DR WEBSTER AT BEDSIDE TO SPEAK WITH PT AND SPOUSE, PT PLACED IN SEMI FOWLERS POSITION AND SANDWICH BOX WITH PO FLUIDS GIVEN
--- NOTE | 2020-12-20 16:13 | NUR ---
PT RIGHT GROIN WITH OOZING OR BLEEDING , SOFT AND OPSITE C/D/I. EXTREMITY WARM AND PEDAL PULSE PALPABLE MOVES ALL DIGITS, DENIES PAIN OR NEEDS , IV INFUSING PER ORDERS, CALL LIGHT WITHIN REACH,
--- NOTE | 2020-12-20 16:45 | NUR ---
22G IV REMOVED FROM LEFT WRIST CATHETER INTACT AND 2 X 2 DRESSING APPLIED, DISCHARGE INSTRUCTIONS REVIWED WITH PT AND SPOUSE QUESTIONS AND CONCERNS ADDRESSED BOTH VERBALIZED UNDERSTANDING, RIGHT GROIN OPSITE C/D/I AREA SOFT WITHOUT PALPABLE HEMATOMA, PEDAL PULSE PALPABLE, DENIES PAIN OR NEEDS, VSS, SR/SB PER MONITOR
--- NOTE | 2020-12-20 16:50 | NUR ---
PT DRESSES WITH ASSISTANCE FROM SPOUSE, AMBULATES TO BATHROOM VOIDS WITHOUT DIFFICULTY, RIGHT GROIN SOFT WITH NO OOZING OR BLEEDING , PEDAL PULSE PALPABLE
--- NOTE | 2020-12-20 17:00 | NUR ---
PT TAKEN TO CAR VIA WHEELCHAIR , PT HAS NO QUESTIONS OR CONCERNS.
== END 2020-12-20 17:00 | disposition home or self-care (01) ==
LOC: D.CATH 11:27
PROVIDERS: ATTEND Internal Medicine Cardiovascular Disease
DX: I20.8 Other forms of angina pectoris (principal); R94.39 Abnormal result of other cardiovascular function study